=== PATIENT | male | born 1965 | race African-American/Black ===

== ENCOUNTER 2019-04-11 19:12 | Emergency (ER) | payer OTHER ==
[~2019-04-11] VITALS: Ht 177.8 cm; Wt 109.0 kg
--- NOTE | 2019-04-11 19:37 | NUR ---
PT RESTING IN BED, ERP AT BEDSIDE, PT STATES HE HAS BEEN WITHOUT O2X4 DAYS, NORMALLY ON 4L, HAS NOT TAKEN OTHER MEDS IN A WEEK. HX A-FIB, DIABETES, COPD
[2019-04-11 20:06] LABS: ANION GAP 6 mmol/L (5-15); CALCIUM 8.5 mg/dL (8.5-10.1); CHLORIDE 104 mmol/L (98-107); CREATININE 1.54 mg/dL (0.7-1.3)
[2019-04-11 20:27] LABS: BASOPHILS # (AUTO) 0.02 x10^3/uL (0-0.1); BASOPHILS % (AUTO) 1 % (0-1); EOSINOPHILS # (AUTO) 0.05 x10^3/uL (0-0.4); EOSINOPHILS % (AUTO) 1 % (1-7); LYMPHOCYTES # (AUTO) 0.89 x10^3/uL (1-3.4); LYMPHOCYTES % (AUTO) 20 % (22-44); MD MORPH REVIEW ONLY; MEAN CORPUSCULAR HEMOGLOBIN 27.4 pg (27.5-34.5); MEAN CORPUSCULAR HGB CONC 31.4 g/dL (33.2-36.2); MEAN CORPUSCULAR VOLUME 87.3 fL (81-97); MEAN PLATELET VOLUME 10.1 fL (7.4-10.4); MONOCYTES # (AUTO) 0.42 x10^3/uL (0.2-0.8); MONOCYTES % (AUTO) 9 % (2-9); NEUTROPHILS # (AUTO) 3.16 x10^3/uL (1.8-6.8); NEUTROPHILS % (AUTO) 70 % (42-75); PLATELET COUNT 218 x10^3/uL (130-400); RED BLOOD COUNT 5.28 x10^6/uL (4.38-5.82); RED CELL DISTRIBUTION WIDTH 17.1 % (9.4-14.8)
--- NOTE | 2019-04-11 20:28 | NUR ---
PT ON KNEES ON FLOOR LEANING OVER GURNEY. OFFERED ASSIST TO GET PT BACK IN GURNEY, PT STATED HE IS MORE COMFORTABLE IN THIS POSITION. PT SATING 97% ON 6L O2 PER N/C. WILL CONTINUE TO MONITOR. CALL LIGHT WITHIN REACH. PT IS ABLE TO REPOSITION SELF.
[2019-04-11 20:40] LABS: ANISOCYTOSIS 1+; HYPOCHROMIA 1+; LARGE PLATELETS 1+; POLYCHROMASIA 1+
[2019-04-11 20:41] LABS: <PLATELET ESTIMATE> ADEQUATE
[2019-04-11] MEDS ORDERED: FUROSEMIDE 40 MG/4 ML ONE (20:56)
[2019-04-11] MEDS ORDERED: SODIUM CHLORIDE FLUSH 10ML SYR IVF ONE (21:00)
[2019-04-11] MEDS ORDERED: FUROSEMIDE 40 MG/4 ML IV ONE (21:00)
[2019-04-11 21:08] VITALS: BP 170/116
--- NOTE | 2019-04-11 21:15 | NUR ---
IV REMOVED, PT ABLE TO AMBULATE TO DC DESK ON OWN. PT SPOUSE WITH HIM. PT AWARE HE MAY RETURN ANYTIME. PT SIGNED AMA FORM AFTER FORM WAS EXPLAINED TO PT.
[2019-04-11 21:30] LABS: TROPONIN I 0.034 ng/mL (0.000-0.045)
[2019-04-12] MEDS ORDERED: LASIX PO (00:24)
[2019-04-12] MEDS ORDERED: AMLO10TA8 PO (00:24)
[2019-04-12] MEDS ORDERED: LOSA100T14 PO (00:29)
[2019-04-12] MEDS ORDERED: RIVA20TA PO (00:29)
[2019-04-12] MEDS ORDERED: GABA-826 PO (00:29)
[2019-04-12] MEDS ORDERED: GLIP10TA13 PO (00:29)
[2019-04-12] MEDS ORDERED: ISOS30TA8 PO (00:29)
[2019-04-12] MEDS ORDERED: ATOR-2 PO (00:29)
[2019-04-12] MEDS ORDERED: METO200T47 PO (00:29)
[2019-04-12] MEDS ORDERED: MAGN400T22 PO (00:29)
[2019-04-12] MEDS ORDERED: FURO80TA77 PO (00:29)
[2019-04-12] MEDS ORDERED: BACL-19 PO (00:29)
== END 2019-04-11 21:16 | disposition left against medical advice (07) ==
LOC: ED 21:10
DX: I48.20 Chronic atrial fibrillation, unspecified (principal); J44.1 Chronic obstructive pulmonary disease with (acute) exacerbation; E11.22 Type 2 diabetes mellitus with diabetic chronic kidney disease; I13.0 Hypertensive heart and chronic kidney disease with heart failure and stage 1 through stage 4 chronic kidney disease, or unspecified chronic kidney disease; N18.9 Chronic kidney disease, unspecified; I50.22 Chronic systolic (congestive) heart failure; Z87.891 Personal history of nicotine dependence
CPT/HCPCS: 36415; 71045; 80048; 83880; 84484; 85025; 93005; 96374; 99284; J1940

== ENCOUNTER 2019-04-11 23:58 | Emergency (ER) | payer MEDICARE, OTHER ==
[~2019-04-11] VITALS: Ht 177.8 cm; Wt 109.0 kg
[2019-04-12 00:03] VITALS: BP 175/139
--- NOTE | 2019-04-12 00:19 | NUR ---
PT REFUSED EKG IN TRIAGE
--- NOTE | 2019-04-12 00:20 | NUR ---
THIS IS A 53Y M THAT COMES IN FOR SOB, PT STS HE HAS BEEN OUT OF HIS MEDS FOR A WEEK AND A HALF. PT STS A WEEK AGO HE WAS HOSPITALIZED FOR THE SAME THING IN [place], AND WAS ON OXYGEN BEFORE IT WAS STOLEN. PT CONNECTED TO ALL MONITORING, VSS, O2 SAT 94% ON 5L.
--- NOTE | 2019-04-12 00:21 | NUR ---
MD AT BEDSIDE TO ASSESS PT
[2019-04-12] MEDS ORDERED: AMLO10TA8 PO (00:24)
[2019-04-12] MEDS ORDERED: LASIX PO (00:24)
[2019-04-12] MEDS ORDERED: FURO80TA77 PO (00:29)
[2019-04-12] MEDS ORDERED: ISOS30TA8 PO (00:29)
[2019-04-12] MEDS ORDERED: GABA-826 PO (00:29)
[2019-04-12] MEDS ORDERED: METO200T47 PO (00:29)
[2019-04-12] MEDS ORDERED: BACL-19 PO (00:29)
[2019-04-12] MEDS ORDERED: LOSA100T14 PO (00:29)
[2019-04-12] MEDS ORDERED: ATOR-2 PO (00:29)
[2019-04-12] MEDS ORDERED: GLIP10TA13 PO (00:29)
[2019-04-12] MEDS ORDERED: MAGN400T22 PO (00:29)
[2019-04-12] MEDS ORDERED: RIVA20TA PO (00:29)
--- NOTE | 2019-04-12 00:45 | NUR ---
HOSPITALIST AT BEDSIDE TO ADMIT PT
[2019-04-12] MEDS ORDERED: GLUCAGON 1 MG IM PRN (01:00)
[2019-04-12] MEDS ORDERED: BACLOFEN 10 MG TABLET PO PRN (01:00)
[2019-04-12] MEDS ORDERED: ONDANSETRON 2MG/ML, 2ML IVPush PRN (01:00)
[2019-04-12] MEDS ORDERED: DEXTROSE 4 GM TAB.CHEW PO PRN (01:00)
[2019-04-12] MEDS ORDERED: ACETAMINOPHEN 325 MG TABLET PO PRN (01:00)
[2019-04-12] MEDS ORDERED: DEXTROSE 50%, 50ML SYRINGE IVPush PRN (01:00)
[2019-04-12] MEDS ORDERED: hydrALAzine 20 MG/ML, 1ML IVPush PRN (01:00)
[2019-04-12] MEDS ORDERED: ONDANSETRON ODT 4 MG PO PRN (01:00)
[2019-04-12] MEDS ORDERED: AMLODIPINE 5 MG TABLET PO SCH (01:00)
[2019-04-12] MEDS ORDERED: FUROSEMIDE 40 MG/4 ML IV SCH (01:00)
[2019-04-12] MEDS ORDERED: FUROSEMIDE 40 MG/4 ML ONE (01:10)
--- NOTE | 2019-04-12 01:15 | NUR ---
PT REFUSING MEDICATIONS, PT A/O X4 AND STS MAN I DON'T KNOW WHY WE HAVE TO KEEP DOING THIS
--- NOTE | 2019-04-12 01:20 | NUR ---
PT STS WANTS TO LEAVE HE HAS A BED ACROSS THE STREET AND IS UNHAPPY THAT HE WILL REMAIN IN THE ER UNTIL A BED BECOMES AVAILABLE MD RUST
[2019-04-12] MEDS ORDERED: APIXABAN 5 MG TABLET PO SCH (01:30)
--- NOTE | 2019-04-12 01:43 | NUR ---
HOSPITALIST AND ERP AT BEDSIDE TO EXPLAIN POTENTIAL RISK OF AMA. PT STS "I'M TIRED OF TALKING TO YOU PEOPLE WHY WOULD I STAY HERE WHEN I HAVE A WARM BED ACROSS THE STREET."
--- NOTE | 2019-04-12 01:45 | NUR ---
PT LEFT AMA WITH . IV DC PRIOR TO DEPARTURE FROM ER
[2019-04-12] MEDS ORDERED: INSULIN LISPRO 100 UNITS/ML, PEN SQ-INSULIN SCH (07:00)
[2019-04-12] MEDS ORDERED: TEMPLATE NON-FORMULARY MED. (Metoprolol Succinate** 200 MG) PO SCH (09:00)
[2019-04-12] MEDS ORDERED: ISOSORBIDE MONONITRATE ER 30 MG TABLET PO SCH (09:00)
[2019-04-12] MEDS ORDERED: GABAPENTIN 100 MG CAPSULE PO SCH (09:00)
[2019-04-12] MEDS ORDERED: BACLOFEN 10 MG TABLET PO SCH (09:00)
[2019-04-12] MEDS ORDERED: SODIUM CHLORIDE FLUSH 10ML SYR IVF SCH (09:00)
[2019-04-12] MEDS ORDERED: RIVAROXABAN 20 MG TABLET PO SCH (09:00)
[2019-04-12] MEDS ORDERED: ATORVASTATIN 80 MG TABLET PO SCH (21:00)
== END 2019-04-12 01:48 | disposition left against medical advice (07) ==
LOC: SUATTDRO 04-12 00:34 → ED 04-12 00:44
PROVIDERS: ATTEND Hospitalist
DX: I11.0 Hypertensive heart disease with heart failure (principal); I50.9 Heart failure, unspecified; J44.9 Chronic obstructive pulmonary disease, unspecified; R09.02 Hypoxemia; Z91.14 Patient's other noncompliance with medication regimen; R00.0 Tachycardia, unspecified; E11.9 Type 2 diabetes mellitus without complications; I48.91 Unspecified atrial fibrillation; Z90.49 Acquired absence of other specified parts of digestive tract; Z87.891 Personal history of nicotine dependence
CPT/HCPCS: 36415; 85379; 99283

== ENCOUNTER 2019-04-14 11:00 | Inpatient (IN) | payer MEDICARE, MEDICAID ==
[~2019-04-14] VITALS: Ht 177.8 cm; Wt 110.7 kg
[~2019-04-14 11:00] MED LIST: AMLO10TA8 PO; ATOR-2 PO; BACL-19 PO; FURO80TA77 PO; GABA-826 PO; GLIP10TA13 PO; ISOS30TA8 PO; LASIX PO; LOSA100T14 PO; MAGN400T22 PO; METO200T47 PO; RIVA20TA PO
--- NOTE | 2019-04-14 11:28 | NUR ---
pt to ed from [facility] w/ gf. here 2 days ago for same. non med compliant. comes in afib 120-140s w/ mult pvcs. bp as charted. denies cp but feels heart racing. 70s on RA on arrival bc non compliant w/ o2. 10 L oxymask to 96%. c/o sob. crackles L lung base. ROSE. no swelling in legs. pt reluctant to comply w/ rn directions/questiosn. sts feels better w/ o2. piv est 18 MANNY, labs drawn. ecg on arrival. dr chapa in room at moment. call sanchez in reach. as
[2019-04-14] MEDS ORDERED: ASPIRIN 81 MG TABLET CHEW ONE (11:38)
[2019-04-14] MEDS ORDERED: DILTIAZEM 5 MG/ML, 5ML ONE (11:39)
[2019-04-14] MEDS ORDERED: RIVAROXABAN 20 MG TABLET ONE (11:39)
--- NOTE | 2019-04-14 11:47 | NUR ---
dilt per mar. 6 pvcs noted. as
--- NOTE | 2019-04-14 11:56 | NUR ---
bp/hr improved see vitals. pt sts feels no difference. desat to 83 when takes o2 off. told to keep o2 on. pt told sahm he would stay for admit this time. call sanchez in reach ctm. as
[2019-04-14] MEDS ORDERED: ASPIRIN 81 MG TABLET CHEW PO ONE (12:00)
[2019-04-14] MEDS ORDERED: SODIUM CHLORIDE FLUSH 10ML SYR IVF ONE (12:00)
[2019-04-14] MEDS ORDERED: DILTIAZEM 5 MG/ML, 5ML IV ONE (12:00)
[2019-04-14] MEDS: RIVAROXABAN 20 MG TABLET PO SCH (12:00)
[2019-04-14 12:08] LABS: BASOPHILS # (AUTO) 0.02 x10^3/uL (0-0.1); BASOPHILS % (AUTO) 0 % (0-1); EOSINOPHILS % (AUTO) 2 % (1-7); LYMPHOCYTES # (AUTO) 0.66 x10^3/uL (1-3.4); LYMPHOCYTES % (AUTO) 10 % (22-44); MD NO; MEAN CORPUSCULAR HEMOGLOBIN 27.7 pg (27.5-34.5); MEAN CORPUSCULAR HGB CONC 31.6 g/dL (33.2-36.2); MEAN CORPUSCULAR VOLUME 87.4 fL (81-97); MEAN PLATELET VOLUME 9.6 fL (7.4-10.4); MONOCYTES # (AUTO) 0.44 x10^3/uL (0.2-0.8); MONOCYTES % (AUTO) 7 % (2-9); NEUTROPHILS # (AUTO) 5.19 x10^3/uL (1.8-6.8); NEUTROPHILS % (AUTO) 81 % (42-75); PLATELET COUNT 227 x10^3/uL (130-400); RED BLOOD COUNT 5.29 x10^6/uL (4.38-5.82); RED CELL DISTRIBUTION WIDTH 16.9 % (9.4-14.8)
[2019-04-14 12:14] LABS: ALBUMIN 2.9 g/dL (3.4-5.0); ANION GAP 9 mmol/L (5-15); CALCIUM 8.6 mg/dL (8.5-10.1); CHLORIDE 103 mmol/L (98-107)
[2019-04-14 12:21] LABS: ALANINE AMINOTRANSFERASE 16 U/L (12-78); ALKALINE PHOSPHATASE 119 U/L (45-117); BILIRUBIN,TOTAL 2.6 mg/dL (0.2-1.0); CREATININE 1.58 mg/dL (0.7-1.3); TOTAL PROTEIN 7.1 g/dL (6.4-8.2); TROPONIN I 0.032 ng/mL (0.000-0.045)
--- NOTE | 2019-04-14 12:21 | NUR ---
vs more stable. pt resting on stretcher. o2 titrated down to 8 lpm. wctm. as
--- NOTE | 2019-04-14 12:28 | NUR ---
PT VERBALIZING FRUSTRATION AT BEING HOOKED UP TO MONITOR. BP CUFF REPOSITIONED TO ATTEMPT ACCURATE BP PT KEEPS MOVING/LAYING ON CUFF. PT TAKING CUFF OFF. VERBALLY AGGRESSIVE WITH THIS RN. PT'S RUDE, WHEN ATTEMPTED TO EXPLAIN NECESSITY OF O2/MONITOR/BP CUFF, ROLLED HER EYES STS "I DON'T NEED TO HEAR THIS". PT THREATENING TO LEAVE. OXYMASK REPOSITIONED ON FACE. CALL GARCIA IN REACH. SEARCH STRATEGIST INFORMED. WILL NOTIFY MD. HR WAS 110-120S AFIB BUT ONCE PT STARTED SITTING UP AND MOVING WAS 140S AFTIB.
[2019-04-14] MEDS ORDERED: DILTIAZEM 125 MG in SODIUM CHLORIDE 0.9% 100 ML IV SCH ×2 (12:39→17:30)
--- NOTE | 2019-04-14 12:58 | NUR ---
dilt gtt req from pharm. pt appears to be sleeping. vs as noted. as
--- NOTE | 2019-04-14 13:13 | NUR ---
cardizem gtt started per may. vitals as charted .afib 110s-120s. awaiting admit. trop neg. pt and continue to be dismissive of staff. call sanchez in reach. as
--- NOTE | 2019-04-14 13:48 | NUR ---
vitals as noted. md made aware. cardizem to 15 mg/hr. pt denies pain/cp. trialing nc at 6 LPM. call sanchez in reach. as
--- NOTE | 2019-04-14 14:11 | NUR ---
PT WILL BE ICU EVAL. CONT TO TITRATE DILT.
[2019-04-14] MEDS ORDERED: hydrALAzine 20 MG/ML, 1ML ONE (14:23)
[2019-04-14] MEDS ORDERED: NITROGLYCERIN/D5W PMX 250 ML IV SCH (14:24)
--- NOTE | 2019-04-14 14:28 | NUR ---
NOTIFIED OF BP. PLAN FOR NITRO GTT.
--- NOTE | 2019-04-14 14:33 | NUR ---
emmanuel segovia from pharm. as
[2019-04-14] MEDS ORDERED: NITROGLYCERIN OINT 2%, 1GM TP ONE ×2 (14:51→15:00)
--- NOTE | 2019-04-14 14:59 | NUR ---
ORDER FOR NITROPASTE OBTAINED. PT REFUSING. STS GETS MEJIA. OFFERED TYLENOL. STILL REFUSING. WILL NOTIFY
[2019-04-14] MEDS ORDERED: METOPROLOL 1 MG/ML, 5ML ONE (15:38)
[2019-04-14] MEDS ORDERED: AMLODIPINE 5 MG TABLET ONE (15:38)
--- NOTE | 2019-04-14 15:43 | NUR ---
md made aware that pt refusig nitro past, refusing 2nd iv for nitro gtt. home meds ordered, metoprolol iv. ctm. denies cp/sob.as
[2019-04-14] MEDS ORDERED: METOPROLOL 1 MG/ML, 5ML IVPush ONE (16:00)
--- NOTE | 2019-04-14 16:46 | NUR ---
deftu at bedside for eval. daily bp meds per may. as
--- NOTE | 2019-04-14 17:00 | NUR ---
pt to be cardtele admit. as
[2019-04-14] MEDS ORDERED: POLYETHYLENE GLYCOL 17 GM PACKET PO PRN (17:30)
[2019-04-14] MEDS ORDERED: ONDANSETRON 2MG/ML, 2ML IVPush PRN (17:30)
[2019-04-14] MEDS ORDERED: PROMETHAZINE 25 MG/ML, 1ML IM PRN (17:30)
[2019-04-14] MEDS ORDERED: SODIUM CHLORIDE FLUSH 10ML SYR IVF PRN (17:30)
[2019-04-14] MEDS ORDERED: DEXTROSE 4 GM TAB.CHEW PO PRN (17:30)
[2019-04-14] MEDS ORDERED: BISACODYL 10 MG SUPP PR PRN (17:30)
[2019-04-14] MEDS ORDERED: DEXTROSE 50%, 50ML SYRINGE IVPush PRN (17:30)
[2019-04-14] MEDS ORDERED: DOCUSATE 100 MG CAPSULE PO PRN (17:30)
[2019-04-14] MEDS ORDERED: GLUCAGON 1 MG IM PRN (17:30)
[2019-04-14] MEDS ORDERED: ACETAMINOPHEN 325 MG TABLET PO PRN (17:30)
[2019-04-14] MEDS ORDERED: MAGNESIUM SULFATE PMX 2GM/50ML 50 ML IV ONE (18:00)
[2019-04-14] MEDS ORDERED: POTASSIUM CHLORIDE 20 MEQ TAB.ER.PRT PO ONE (18:00)
[2019-04-14 18:01] LABS: TROPONIN I 0.039 ng/mL (0.000-0.045)
[2019-04-14] MEDS ORDERED: POTASSIUM CHLORIDE 20 MEQ TAB.ER.PRT ONE ×3 (18:39→19:06)
[2019-04-14] MEDS ORDERED: MAGNESIUM SULFATE PMX 2GM/50ML 50 ML ONE (19:13)
--- NOTE | 2019-04-14 19:19 | NUR ---
SALESPERSON BOOKS: INTO ROOM TO DISCUSS CARE. POC DISCUSSED. PT NOW AGREEABLE TO SECOND IV DUE TO NEEDING MUTLIPLE IV DRIPS. PT GIVEN NEW KDUR PER REQUEST. PT AWARE HE WILL BE A CARDS HOLD IN THE ED AT THIS TIME. PT AND SPOUSE DENY FURTHER NEEDS AT THIS TIME. CALL LIGHT ON LAP.
--- NOTE | 2019-04-14 19:32 | NUR ---
ATTEMPT TO MEDICATE PT. MAG AND DILTZ INCOMPATIBLE. EXPLAINED TO PT. PT VERY RESISTANT TO SECOND IV. WHEN EXPLAINED, DEMANDS TO SPEAK W/ SOMEONE ELSE. PT VERBALLY AGGRESSIVE. NOTIFIED EEO OFFICER. REPORT TO DEE RN, JOSESITO RN. HOSPITAL BED/DINNER TRAY ORDERED.
[2019-04-14] MEDS: SODIUM CHLORIDE FLUSH 10ML SYR IVF SCH (21:00)
[2019-04-14] MEDS: ATORVASTATIN 40 MG TABLET PO SCH (22:27)
[2019-04-14] MEDS: BACLOFEN 10 MG TABLET PO SCH (22:27)
[2019-04-14] MEDS: INSULIN LISPRO 100 UNITS/ML, PEN SQ-INSULIN SCH (22:48)
--- NOTE | 2019-04-14 23:20 | NUR ---
Patient transferred to medical bed with no complaints. Medications administered per may.
[2019-04-14 23:34] LABS: TROPONIN I 0.036 ng/mL (0.000-0.045)
--- NOTE | 2019-04-14 23:35 | NUR ---
Per MD Cornelius, hospitalist, run Diltiazem at 5mL/hr.
--- NOTE | 2019-04-15 01:55 | NUR ---
Patient resting in bed with no complaints.
--- NOTE | 2019-04-15 02:51 | NUR ---
Patient sleeping in bed with no complaints. Respirations even and unlabored.
[2019-04-15 04:44] LABS: ALANINE AMINOTRANSFERASE 16 U/L (12-78); ALBUMIN 2.6 g/dL (3.4-5.0); ANION GAP 6 mmol/L (5-15); CALCIUM 8.3 mg/dL (8.5-10.1); CHLORIDE 109 mmol/L (98-107)
[2019-04-15 04:47] LABS: BASOPHILS # (AUTO) 0.03 x10^3/uL (0-0.1); BASOPHILS % (AUTO) 1 % (0-1); EOSINOPHILS # (AUTO) 0.18 x10^3/uL (0-0.4); EOSINOPHILS % (AUTO) 3 % (1-7); LYMPHOCYTES # (AUTO) 0.67 x10^3/uL (1-3.4); LYMPHOCYTES % (AUTO) 9 % (22-44); MD NO; MEAN CORPUSCULAR HEMOGLOBIN 27.3 pg (27.5-34.5); MEAN CORPUSCULAR HGB CONC 31.1 g/dL (33.2-36.2); MEAN CORPUSCULAR VOLUME 87.8 fL (81-97); MEAN PLATELET VOLUME 9.6 fL (7.4-10.4); MONOCYTES # (AUTO) 0.47 x10^3/uL (0.2-0.8); MONOCYTES % (AUTO) 6 % (2-9); NEUTROPHILS # (AUTO) 6.07 x10^3/uL (1.8-6.8); NEUTROPHILS % (AUTO) 82 % (42-75); PLATELET COUNT 185 x10^3/uL (130-400); RED BLOOD COUNT 4.85 x10^6/uL (4.38-5.82)
[2019-04-15 04:48] LABS: ALKALINE PHOSPHATASE 109 U/L (45-117); BILIRUBIN,TOTAL 1.9 mg/dL (0.2-1.0); CHOL/HDL RATIO 4.3; CHOLESTEROL, TOTAL 126 mg/dL (140-239); CREATININE 1.45 mg/dL (0.7-1.3); HDL CHOL % 23 % (26-37); HDL CHOLESTEROL (DIRECT) 29 mg/dL (40-60); LDL CHOLESTEROL,CALCULATED 77 mg/dL (54-169); LDL/HDL RATIO 2.7 (0.5-3.0); TOTAL PROTEIN 6.5 g/dL (6.4-8.2); TRIGLYCERIDES 100 mg/dL (50-200); VLDL CHOLESTEROL 20 mg/dL (0-25)
[2019-04-15] MEDS ORDERED: FUROSEMIDE 20 MG/2 ML ONE (06:39)
[2019-04-15] MEDS: FUROSEMIDE 20 MG/2 ML IV SCH ×2 (06:41→17:28)
--- NOTE | 2019-04-15 07:56 | NUR ---
cardiac rhythm strip printed and put on chart
[2019-04-15] MEDS: INSULIN LISPRO 100 UNITS/ML, PEN SQ-INSULIN SCH ×4 (08:45→20:09)
[2019-04-15] MEDS ORDERED: AMLODIPINE 10 MG TAB PO SCH (09:00)
[2019-04-15] MEDS ORDERED: ISOSORBIDE MONONITRATE ER 30 MG TABLET PO SCH (09:00)
[2019-04-15] MEDS ORDERED: LOSARTAN 100 MG TAB PO SCH (09:00)
[2019-04-15] MEDS: SODIUM CHLORIDE FLUSH 10ML SYR IVF SCH ×2 (09:00→20:08)
[2019-04-15] MEDS ORDERED: RIVAROXABAN 20 MG TABLET ONE (09:19)
[2019-04-15] MEDS ORDERED: MAGNESIUM OXIDE 400 MG TABLET ONE (09:19)
[2019-04-15] MEDS ORDERED: AMLODIPINE 5 MG TABLET ONE (09:19)
[2019-04-15] MEDS: RIVAROXABAN 20 MG TABLET PO SCH (09:32)
[2019-04-15] MEDS: MAGNESIUM OXIDE 400 MG TABLET PO SCH (09:32)
[2019-04-15] MEDS: AMLODIPINE 10 MG TAB PO SCH (09:32)
[2019-04-15] MEDS: BACLOFEN 10 MG TABLET PO SCH ×2 (10:11→20:08)
[2019-04-15] MEDS: GABAPENTIN 100 MG CAPSULE PO SCH (10:11)
[2019-04-15] MEDS: LOSARTAN 100 MG TAB PO SCH (10:11)
[2019-04-15] MEDS: ISOSORBIDE MONONITRATE ER 30 MG TABLET PO SCH (10:11)
[2019-04-15] MEDS: METOPROLOL SUCCINATE 100 MG TAB.ER.24H PO SCH ×2 (10:11→20:08)
[2019-04-15] MEDS ORDERED: hydrALAzine 20 MG/ML, 1ML IV PRN (14:00)
--- NOTE | 2019-04-15 14:13 | NUR ---
RECEIVED REPORT FROM PEE ARRIAGA. CARE ASSUMED AT THIS TIME. PT SITTING UP IN BED ON KNEES "JUST STRETCHING AND CHANGING POSITION." PT LAYING BACK DOWN ON HOSPITAL BED IN POSITION OF COMFORT. DENIES ANY PAIN AND NEED TO USE RESTROOM. VSS. RATE CONTROLLED ON MONITOR, 70-80. ALL NEEDS MET AND ADDRESSED. FALL PRECAUTIONS IN PLACE. SIDE RAILS UPX2. A&OX4. CAREGIVER AT BEDSIDE. PT WAS CARD TELE HOLD, LEVEL OF CARE CHANGED TO MED TELE BY DR. DAVIS, ADMITTING PROVIDER. AWAITING ROOM ASSIGNMENT ON FLOOR.
--- NOTE | 2019-04-15 15:22 | NUR ---
PHONE/VERBAL REPORT TO MICHELLE ARRIAGA FOR ROOM 489. PT READY FOR TRANSPORT TO FLOOR.
[2019-04-15 16:21] VITALS: BP 127/88
[2019-04-15 20:00] VITALS: BP 143/96
[2019-04-15] MEDS: ATORVASTATIN 40 MG TABLET PO SCH (20:08)
[2019-04-16 03:24] VITALS: BP 152/111
[2019-04-16 04:11] VITALS: BP 151/104
[2019-04-16 06:26] VITALS: BP 158/106
[2019-04-16] MEDS: INSULIN LISPRO 100 UNITS/ML, PEN SQ-INSULIN SCH ×4 (07:58→20:23)
[2019-04-16] MEDS: RIVAROXABAN 20 MG TABLET PO SCH (07:59)
[2019-04-16] MEDS: FUROSEMIDE 20 MG/2 ML IV SCH ×2 (07:59→17:25)
[2019-04-16] MEDS: METOPROLOL SUCCINATE 100 MG TAB.ER.24H PO SCH ×2 (07:59→20:22)
[2019-04-16] MEDS: ISOSORBIDE MONONITRATE ER 30 MG TABLET PO SCH (07:59)
[2019-04-16] MEDS: AMLODIPINE 10 MG TAB PO SCH (08:00)
[2019-04-16] MEDS: MAGNESIUM OXIDE 400 MG TABLET PO SCH (08:00)
[2019-04-16] MEDS: BACLOFEN 10 MG TABLET PO SCH ×2 (08:00→20:22)
[2019-04-16] MEDS: GABAPENTIN 100 MG CAPSULE PO SCH (08:00)
[2019-04-16] MEDS: SODIUM CHLORIDE FLUSH 10ML SYR IVF SCH ×2 (08:00→20:23)
[2019-04-16] MEDS: LOSARTAN 100 MG TAB PO SCH (08:01)
[2019-04-16 10:20] LABS: ALBUMIN 2.5 g/dL (3.4-5.0); ANION GAP 7 mmol/L (5-15); CALCIUM 8.4 mg/dL (8.5-10.1); CHLORIDE 105 mmol/L (98-107)
[2019-04-16 10:26] LABS: ALANINE AMINOTRANSFERASE 15 U/L (12-78); ALKALINE PHOSPHATASE 109 U/L (45-117); BILIRUBIN,TOTAL 1.8 mg/dL (0.2-1.0); CREATININE 1.66 mg/dL (0.7-1.3); TOTAL PROTEIN 6.5 g/dL (6.4-8.2)
[2019-04-16] MEDS: methylPREDNISolone SOD SUCC 125 MG/2 ML IVPush SCH ×3 (11:05→22:42)
[2019-04-16 11:34] LABS: BASOPHILS % (AUTO) 0 % (0-1); EOSINOPHILS # (AUTO) 0.23 x10^3/uL (0-0.4); EOSINOPHILS % (AUTO) 4 % (1-7); LYMPHOCYTES # (AUTO) 0.62 x10^3/uL (1-3.4); LYMPHOCYTES % (AUTO) 11 % (22-44); MD SCAN; MEAN CORPUSCULAR HEMOGLOBIN 27.5 pg (27.5-34.5); MEAN CORPUSCULAR HGB CONC 31.4 g/dL (33.2-36.2); MEAN CORPUSCULAR VOLUME 87.6 fL (81-97); MEAN PLATELET VOLUME 9.2 fL (7.4-10.4); MONOCYTES # (AUTO) 0.48 x10^3/uL (0.2-0.8); MONOCYTES % (AUTO) 9 % (2-9); NEUTROPHILS # (AUTO) 4.17 x10^3/uL (1.8-6.8); NEUTROPHILS % (AUTO) 76 % (42-75); PLATELET COUNT 230 x10^3/uL (130-400); RED CELL DISTRIBUTION WIDTH 16.5 % (9.4-14.8)
[2019-04-16 12:56] VITALS: BP 149/101
[2019-04-16] MEDS ORDERED: MAGNESIUM SULFATE PMX 2GM/50ML 50 ML IV ONE (17:00)
[2019-04-16] MEDS: POTASSIUM CHLORIDE 20 MEQ TAB.ER.PRT PO SCH (17:25)
[2019-04-16 19:57] VITALS: BP 144/96
[2019-04-16] MEDS: ATORVASTATIN 40 MG TABLET PO SCH (20:22)
[2019-04-17 01:28] VITALS: BP 167/89
[2019-04-17] MEDS: methylPREDNISolone SOD SUCC 125 MG/2 ML IVPush SCH (05:08)
[2019-04-17 05:59] LABS: ALANINE AMINOTRANSFERASE 21 U/L (12-78); ALBUMIN 2.9 g/dL (3.4-5.0); ANION GAP 7 mmol/L (5-15); CALCIUM 8.6 mg/dL (8.5-10.1); CHLORIDE 101 mmol/L (98-107); CREATININE 1.75 mg/dL (0.7-1.3)
[2019-04-17 06:01] LABS: ALKALINE PHOSPHATASE 145 U/L (45-117); TOTAL PROTEIN 7.6 g/dL (6.4-8.2)
[2019-04-17 06:43] LABS: MEAN CORPUSCULAR HEMOGLOBIN 27.6 pg (27.5-34.5); MEAN CORPUSCULAR VOLUME 88.8 fL (81-97); PLATELET COUNT 227 x10^3/uL (130-400); RED BLOOD COUNT 5.13 x10^6/uL (4.38-5.82); RED CELL DISTRIBUTION WIDTH 17.1 % (9.4-14.8)
[2019-04-17 06:44] LABS: BASOPHILS % (AUTO) 0 % (0-1); EOSINOPHILS % (AUTO) 0 % (1-7); LYMPHOCYTES # (AUTO) 0.33 x10^3/uL (1-3.4); LYMPHOCYTES % (AUTO) 5 % (22-44); MD SCAN; MONOCYTES # (AUTO) 0.02 x10^3/uL (0.2-0.8); MONOCYTES % (AUTO) 0 % (2-9); NEUTROPHILS # (AUTO) 6.71 x10^3/uL (1.8-6.8); NEUTROPHILS % (AUTO) 95 % (42-75)
[2019-04-17] MEDS: INSULIN LISPRO 100 UNITS/ML, PEN SQ-INSULIN SCH ×2 (07:00→11:49)
[2019-04-17 07:23] VITALS: BP 171/114
[2019-04-17] MEDS ORDERED: DOXYCYCLINE 100 MG in DEXTROSE 5% 250 ML IV SCH (08:30)
[2019-04-17] MEDS: SODIUM CHLORIDE FLUSH 10ML SYR IVF SCH (09:00)
[2019-04-17] MEDS ORDERED: RIVAROXABAN 15 MG TABLET PO SCH (09:00)
[2019-04-17] MEDS: LOSARTAN 100 MG TAB PO SCH (09:00)
[2019-04-17 09:03] VITALS: BP 169/140
[2019-04-17] MEDS: ISOSORBIDE MONONITRATE ER 30 MG TABLET PO SCH (09:04)
[2019-04-17] MEDS: GABAPENTIN 100 MG CAPSULE PO SCH (09:04)
[2019-04-17] MEDS: BACLOFEN 10 MG TABLET PO SCH (09:05)
[2019-04-17] MEDS: MAGNESIUM OXIDE 400 MG TABLET PO SCH (09:05)
[2019-04-17] MEDS: AMLODIPINE 10 MG TAB PO SCH (09:05)
[2019-04-17] MEDS: METOPROLOL SUCCINATE 100 MG TAB.ER.24H PO SCH (09:05)
[2019-04-17] MEDS: POTASSIUM CHLORIDE 20 MEQ TAB.ER.PRT PO SCH (09:05)
[2019-04-17] MEDS: FUROSEMIDE 20 MG/2 ML IV SCH (09:05)
[2019-04-17] MEDS ORDERED: INSULIN LISPRO 100 UNITS/ML, PEN SQ-INSULIN ONE ×2 (09:30→09:40)
[2019-04-17] MEDS ORDERED: INSULIN GLARGINE 100 UNITS/ML, PEN SQ-INSULIN ONE (11:30)
[2019-04-17] MEDS ORDERED: methylPREDNISolone SOD SUCC 125 MG/2 ML IVPush SCH (13:00)
[2019-04-17 14:01] VITALS: BP 176/128
[2019-04-17] MEDS ORDERED: INSULIN GLARGINE 100 UNITS/ML, PEN SQ-INSULIN SCH (21:00)
== END 2019-04-17 15:10 | disposition left against medical advice (07) | DRG 291 ==
LOC: ED 13:13 → SUATTDRO 16:33 → EDIP 17:19 → 4EST 04-15 14:53 → EDIP 04-15 14:54 → 4EST 04-15 15:44
PROVIDERS: ADMIT Internal Medicine; ATTEND Internal Medicine
DX: I13.0 Hypertensive heart and chronic kidney disease with heart failure and stage 1 through stage 4 chronic kidney disease, or unspecified chronic kidney disease (principal); N17.0 Acute kidney failure with tubular necrosis; I50.23 Acute on chronic systolic (congestive) heart failure; I16.1 Hypertensive emergency; J96.11 Chronic respiratory failure with hypoxia; D68.69 Other thrombophilia; I48.20 Chronic atrial fibrillation, unspecified; E83.42 Hypomagnesemia; J20.9 Acute bronchitis, unspecified; E11.22 Type 2 diabetes mellitus with diabetic chronic kidney disease; E11.65 Type 2 diabetes mellitus with hyperglycemia; E87.6 Hypokalemia; E88.09 Other disorders of plasma-protein metabolism, not elsewhere classified; J43.9 Emphysema, unspecified; N18.9 Chronic kidney disease, unspecified; Z59.0 Homelessness; Z79.01 Long term (current) use of anticoagulants; Z82.49 Family history of ischemic heart disease and other diseases of the circulatory system; Z83.3 Family history of diabetes mellitus; Z87.891 Personal history of nicotine dependence; Z91.19 Patient's noncompliance with other medical treatment and regimen; Z95.0 Presence of cardiac pacemaker; Z99.81 Dependence on supplemental oxygen; Z53.29 Procedure and treatment not carried out because of patient's decision for other reasons; E11.21 Type 2 diabetes mellitus with diabetic nephropathy
CPT/HCPCS: 36415; 36600; 71045; 74181; 76700; 80053; 80061; 82803; 82962; 83735; 83880; 84100; 84443; 84484; 85025; 93005; 93306; 96374; 96375; G0378; J7060; J0360; J1815; J1940; J2930; J3475

== ENCOUNTER 2019-04-19 09:13 | Inpatient (IN) | payer MEDICARE, MEDICAID ==
[~2019-04-19] VITALS: Ht 177.8 cm; Wt 104.6 kg
[2019-04-19] MEDS ORDERED: DILTIAZEM 125 MG in SODIUM CHLORIDE 0.9% 100 ML IV SCH (09:34)
--- NOTE | 2019-04-19 09:51 | NUR ---
PT HAS CO SOB FOR 2 WEEKS, WORSENING PAST COUPLE DAYS. PT RECENTLY LEFT AMA, STATES HE WAS UNABLE TO GET HIS MEDICATIONS REFILLED. HIS MEDS WERE ALSO STOLEN W HOME 02. THEREFORE, HE HAS NOT BEEN TAKING MEDICATIONS FOR 2 WEEKS OR USING OXYGEN. PT IS UNALBE TO WALK W OUT BECMOING SOB. MED STUDENT AT BEDSIDE. PTS ARE VISITING FROM [place]. PT REPIRATIONS LABORED AND TACHIPNIC, OXY MASK IN PLACE AT 8 L . FACING GRINDER APPLIED, IV ESTABLISHED.
[2019-04-19] MEDS ORDERED: DILTIAZEM 5 MG/ML, 5ML IV ONE (10:00)
[2019-04-19] MEDS ORDERED: SODIUM CHLORIDE FLUSH 10ML SYR IVF ONE (10:00)
[2019-04-19] MEDS ORDERED: DILTIAZEM 5 MG/ML, 5ML ONE (10:07)
--- NOTE | 2019-04-19 10:17 | NUR ---
DILT GTT STARTED 10ML/HR, DILT IVP TO MG. LABS AT BEDSIDE. PATIENT DEMANDING NASAL CANNULA.
[2019-04-19 10:51] LABS: INTERNATIONAL NORMALIZED RATIO 1.2 (0.93-1.1); PROTHROMBIN TIME 12.7 Seconds (9.6-11.5)
[2019-04-19 10:57] LABS: ALANINE AMINOTRANSFERASE 32 U/L (12-78); ANION GAP 6 mmol/L (5-15); CALCIUM 8.9 mg/dL (8.5-10.1); CHLORIDE 109 mmol/L (98-107); CREATININE 1.67 mg/dL (0.7-1.3); T4 (THYROXINE) 9.2 mcg/dL (4.5-12.1)
[2019-04-19 11:02] LABS: ALKALINE PHOSPHATASE 117 U/L (45-117); BILIRUBIN,TOTAL 1.3 mg/dL (0.2-1.0); TOTAL PROTEIN 7.3 g/dL (6.4-8.2); TROPONIN I 0.023 ng/mL (0.000-0.045)
--- NOTE | 2019-04-19 11:06 | NUR ---
PT WAS REFUSING LABS BECAUSE "IT HURT" RN EXPLAINED TO PT THAT LABS WERE NEEDED TO CONTINUE W PLAN OF CARE. PT BECOMING VERBALLY AGRESSIVE AND WANTING TO AMA. RN EXPLAINED THAT IT WOULD BE DANGEROUS IF PT LEFT BECAUSE OF CURRENT HEALTH STATUS OF OXYGEN REQUIREMENTS AND AFIB. MADE AWARE. PT NOW CHANGED MIND AND ALLOWING LAB TO DRAW AND WILL BE STAYING.
[2019-04-19] MEDS ORDERED: SODIUM CHLORIDE FLUSH 10ML SYR IVF PRN (12:00)
[2019-04-19 12:01] LABS: MEAN CORPUSCULAR HEMOGLOBIN 27.2 pg (27.5-34.5); MEAN CORPUSCULAR HGB CONC 30.9 g/dL (33.2-36.2); MEAN CORPUSCULAR VOLUME 87.9 fL (81-97); MEAN PLATELET VOLUME 10.3 fL (7.4-10.4); PLATELET COUNT 202 x10^3/uL (130-400); RED BLOOD COUNT 5.32 x10^6/uL (4.38-5.82); RED CELL DISTRIBUTION WIDTH 17.9 % (9.4-14.8)
--- NOTE | 2019-04-19 12:22 | NUR ---
PT AMBULATED W STEADY GATE TO BATHROOM W 02. ASSISTED
[2019-04-19 12:27] LABS: BASOPHILS % (AUTO) 0 % (0-1); EOSINOPHILS # (AUTO) 0.02 x10^3/uL (0-0.4); EOSINOPHILS % (AUTO) 0 % (1-7); LYMPHOCYTES # (AUTO) 0.94 x10^3/uL (1-3.4); LYMPHOCYTES % (AUTO) 13 % (22-44); MD SCAN; MONOCYTES # (AUTO) 0.63 x10^3/uL (0.2-0.8); MONOCYTES % (AUTO) 9 % (2-9); NEUTROPHILS # (AUTO) 5.54 x10^3/uL (1.8-6.8); NEUTROPHILS % (AUTO) 78 % (42-75)
--- NOTE | 2019-04-19 13:55 | NUR ---
REPORT TO SHARATH
[2019-04-19 15:26] VITALS: BP 163/118
[2019-04-19] MEDS: LOSARTAN 100 MG TAB PO SCH (16:30)
[2019-04-19] MEDS: METOPROLOL SUCCINATE 100 MG TAB.ER.24H PO SCH (16:33)
[2019-04-19] MEDS: ISOSORBIDE MONONITRATE ER 30 MG TABLET PO SCH (16:33)
[2019-04-19] MEDS: DILTIAZEM 120 MG CAP.ER.24H PO SCH (16:54)
[2019-04-19] MEDS: RIVAROXABAN 20 MG TABLET PO SCH (16:54)
[2019-04-19] MEDS: FUROSEMIDE 40 MG/4 ML IV SCH (16:55)
[2019-04-19] MEDS ORDERED: RIVAROXABAN 15 MG TABLET PO SCH (17:00)
[2019-04-19] MEDS ORDERED: POTASSIUM CHLORIDE 20 MEQ TAB.ER.PRT PO ONE (17:00)
[2019-04-19] MEDS: INSULIN LISPRO 100 UNITS/ML, PEN SQ-INSULIN SCH ×2 (17:32→20:25)
[2019-04-19 19:25] VITALS: BP 139/86
[2019-04-19] MEDS: ATORVASTATIN 40 MG TABLET PO SCH (20:17)
[2019-04-19] MEDS: BACLOFEN 10 MG TABLET PO SCH (20:17)
[2019-04-20 01:15] VITALS: BP 152/99
[2019-04-20 06:36] LABS: CALCIUM 8.4 mg/dL (8.5-10.1)
[2019-04-20] MEDS: INSULIN LISPRO 100 UNITS/ML, PEN SQ-INSULIN SCH ×4 (07:00→22:19)
[2019-04-20 07:04] LABS: ANION GAP 7 mmol/L (5-15); CHLORIDE 109 mmol/L (98-107)
[2019-04-20 08:15] LABS: MEAN CORPUSCULAR HEMOGLOBIN 27.4 pg (27.5-34.5); MEAN CORPUSCULAR HGB CONC 31.1 g/dL (33.2-36.2); MEAN CORPUSCULAR VOLUME 87.9 fL (81-97); MEAN PLATELET VOLUME 8.5 fL (7.4-10.4); PLATELET COUNT 193 x10^3/uL (130-400); RED BLOOD COUNT 4.86 x10^6/uL (4.38-5.82); RED CELL DISTRIBUTION WIDTH 16.6 % (9.4-14.8)
[2019-04-20] MEDS: ISOSORBIDE MONONITRATE ER 30 MG TABLET PO SCH (08:45)
[2019-04-20] MEDS: METOPROLOL SUCCINATE 100 MG TAB.ER.24H PO SCH (08:45)
[2019-04-20] MEDS: MAGNESIUM OXIDE 400 MG TABLET PO SCH (08:45)
[2019-04-20] MEDS: DILTIAZEM 120 MG CAP.ER.24H PO SCH (08:46)
[2019-04-20] MEDS: FUROSEMIDE 40 MG/4 ML IV SCH ×2 (08:46→16:41)
[2019-04-20] MEDS: BACLOFEN 10 MG TABLET PO SCH ×2 (08:46→22:19)
[2019-04-20] MEDS: LOSARTAN 100 MG TAB PO SCH (08:46)
[2019-04-20 08:49] VITALS: BP 163/109
[2019-04-20 08:59] LABS: BASOPHILS # (AUTO) 0.02 x10^3/uL (0-0.1); BASOPHILS % (AUTO) 0 % (0-1); EOSINOPHILS # (AUTO) 0.15 x10^3/uL (0-0.4); EOSINOPHILS % (AUTO) 3 % (1-7); LYMPHOCYTES # (AUTO) 0.79 x10^3/uL (1-3.4); LYMPHOCYTES % (AUTO) 13 % (22-44); MD SCAN; MONOCYTES # (AUTO) 0.36 x10^3/uL (0.2-0.8); MONOCYTES % (AUTO) 6 % (2-9); NEUTROPHILS # (AUTO) 4.67 x10^3/uL (1.8-6.8); NEUTROPHILS % (AUTO) 78 % (42-75)
[2019-04-20] MEDS ORDERED: ISOSORBIDE MONONITRATE ER 30 MG TABLET PO SCH (09:00)
[2019-04-20] MEDS ORDERED: RIVAROXABAN 15 MG TABLET PO SCH (09:00)
[2019-04-20] MEDS ORDERED: LOSARTAN 100 MG TAB PO SCH (09:00)
[2019-04-20] MEDS ORDERED: METOPROLOL SUCCINATE 100 MG TAB.ER.24H PO SCH (09:00)
[2019-04-20] MEDS ORDERED: AMLODIPINE 10 MG TAB PO SCH (09:00)
[2019-04-20] MEDS ORDERED: DILTIAZEM 120 MG CAP.ER.24H PO SCH (09:00)
[2019-04-20 14:14] VITALS: BP 158/92
[2019-04-20] MEDS: RIVAROXABAN 20 MG TABLET PO SCH (16:41)
[2019-04-20 21:18] VITALS: BP 152/107
[2019-04-20] MEDS: ATORVASTATIN 40 MG TABLET PO SCH (22:18)
[2019-04-21 01:21] VITALS: BP 145/82
[2019-04-21 04:38] LABS: MEAN CORPUSCULAR HEMOGLOBIN 27.3 pg (27.5-34.5); MEAN CORPUSCULAR VOLUME 88.3 fL (81-97); MEAN PLATELET VOLUME 9.9 fL (7.4-10.4); PLATELET COUNT 176 x10^3/uL (130-400); RED BLOOD COUNT 4.97 x10^6/uL (4.38-5.82); RED CELL DISTRIBUTION WIDTH 16.9 % (9.4-14.8)
[2019-04-21 04:46] LABS: ANION GAP 3 mmol/L (5-15); CALCIUM 8.3 mg/dL (8.5-10.1); CHLORIDE 103 mmol/L (98-107); CREATININE 1.42 mg/dL (0.7-1.3)
[2019-04-21 04:52] LABS: BASOPHILS # (AUTO) 0.01 x10^3/uL (0-0.1); BASOPHILS % (AUTO) 0 % (0-1); EOSINOPHILS # (AUTO) 0.26 x10^3/uL (0-0.4); EOSINOPHILS % (AUTO) 5 % (1-7); LYMPHOCYTES % (AUTO) 12 % (22-44); MD SCAN; MONOCYTES # (AUTO) 0.38 x10^3/uL (0.2-0.8); MONOCYTES % (AUTO) 7 % (2-9); NEUTROPHILS # (AUTO) 4.39 x10^3/uL (1.8-6.8); NEUTROPHILS % (AUTO) 76 % (42-75)
[2019-04-21] MEDS: INSULIN LISPRO 100 UNITS/ML, PEN SQ-INSULIN SCH ×4 (08:54→21:00)
[2019-04-21] MEDS: LOSARTAN 100 MG TAB PO SCH (08:54)
[2019-04-21] MEDS: MAGNESIUM OXIDE 400 MG TABLET PO SCH (08:55)
[2019-04-21] MEDS: BACLOFEN 10 MG TABLET PO SCH ×2 (08:55→20:56)
[2019-04-21] MEDS: ISOSORBIDE MONONITRATE ER 30 MG TABLET PO SCH (08:56)
[2019-04-21] MEDS: FUROSEMIDE 40 MG/4 ML IV SCH ×2 (08:56→17:03)
[2019-04-21] MEDS: DILTIAZEM 120 MG CAP.ER.24H PO SCH (08:56)
[2019-04-21] MEDS: METOPROLOL SUCCINATE 100 MG TAB.ER.24H PO SCH (08:56)
[2019-04-21 09:06] VITALS: BP 168/111
[2019-04-21 14:09] VITALS: BP 150/99
[2019-04-21] MEDS: RIVAROXABAN 20 MG TABLET PO SCH (17:03)
[2019-04-21 20:47] VITALS: BP 115/74
[2019-04-21] MEDS: ATORVASTATIN 40 MG TABLET PO SCH (20:56)
[2019-04-22 04:03] VITALS: BP 163/96
[2019-04-22 05:00] LABS: ANION GAP 3 mmol/L (5-15); CALCIUM 8.4 mg/dL (8.5-10.1); CHLORIDE 103 mmol/L (98-107)
[2019-04-22 05:01] LABS: CREATININE 1.34 mg/dL (0.7-1.3)
[2019-04-22 08:14] VITALS: BP 132/81
[2019-04-22] MEDS: BACLOFEN 10 MG TABLET PO SCH ×2 (09:16→21:01)
[2019-04-22] MEDS: ISOSORBIDE MONONITRATE ER 30 MG TABLET PO SCH (09:16)
[2019-04-22] MEDS: MAGNESIUM OXIDE 400 MG TABLET PO SCH (09:16)
[2019-04-22] MEDS: LOSARTAN 100 MG TAB PO SCH (09:16)
[2019-04-22] MEDS: FUROSEMIDE 40 MG/4 ML IV SCH ×2 (09:16→17:16)
[2019-04-22] MEDS: METOPROLOL SUCCINATE 100 MG TAB.ER.24H PO SCH (09:17)
[2019-04-22] MEDS: DILTIAZEM 120 MG CAP.ER.24H PO SCH (09:17)
[2019-04-22] MEDS: INSULIN LISPRO 100 UNITS/ML, PEN SQ-INSULIN SCH ×4 (09:21→21:02)
[2019-04-22 15:08] VITALS: BP 145/87
[2019-04-22] MEDS: RIVAROXABAN 20 MG TABLET PO SCH (17:16)
[2019-04-22 20:21] VITALS: BP 156/104
[2019-04-22] MEDS: ATORVASTATIN 40 MG TABLET PO SCH (21:01)
[2019-04-23] MEDS: INSULIN LISPRO 100 UNITS/ML, PEN SQ-INSULIN SCH ×4 (08:15→21:00)
[2019-04-23] MEDS: LOSARTAN 100 MG TAB PO SCH (08:16)
[2019-04-23] MEDS: BACLOFEN 10 MG TABLET PO SCH ×2 (08:16→20:29)
[2019-04-23] MEDS: METOPROLOL SUCCINATE 100 MG TAB.ER.24H PO SCH (08:16)
[2019-04-23] MEDS: FUROSEMIDE 40 MG/4 ML IV SCH (08:16)
[2019-04-23] MEDS: ISOSORBIDE MONONITRATE ER 30 MG TABLET PO SCH (08:16)
[2019-04-23] MEDS: DILTIAZEM 120 MG CAP.ER.24H PO SCH (08:16)
[2019-04-23] MEDS: MAGNESIUM OXIDE 400 MG TABLET PO SCH (08:17)
[2019-04-23 09:32] LABS: ANION GAP 3 mmol/L (5-15); CALCIUM 8.4 mg/dL (8.5-10.1); CHLORIDE 101 mmol/L (98-107); CREATININE 1.59 mg/dL (0.7-1.3)
[2019-04-23 13:46] VITALS: BP 142/82
[2019-04-23] MEDS: RIVAROXABAN 20 MG TABLET PO SCH (17:25)
[2019-04-23 19:50] VITALS: BP 148/107
[2019-04-23] MEDS: ATORVASTATIN 40 MG TABLET PO SCH (20:29)
[2019-04-24 01:15] VITALS: BP 184/130
[2019-04-24] MEDS: hydrALAzine 20 MG/ML, 1ML IV PRN (01:37)
[2019-04-24 02:09] VITALS: BP 168/119
[2019-04-24 02:53] VITALS: BP 156/98
[2019-04-24 07:53] VITALS: BP 172/140
[2019-04-24] MEDS: INSULIN LISPRO 100 UNITS/ML, PEN SQ-INSULIN SCH ×4 (08:16→20:42)
[2019-04-24] MEDS: ISOSORBIDE MONONITRATE ER 30 MG TABLET PO SCH (08:20)
[2019-04-24] MEDS: METOPROLOL SUCCINATE 100 MG TAB.ER.24H PO SCH (08:20)
[2019-04-24] MEDS: MAGNESIUM OXIDE 400 MG TABLET PO SCH (08:21)
[2019-04-24] MEDS: BACLOFEN 10 MG TABLET PO SCH ×2 (08:21→20:41)
[2019-04-24] MEDS: LOSARTAN 100 MG TAB PO SCH (08:22)
[2019-04-24] MEDS: DILTIAZEM 120 MG CAP.ER.24H PO SCH (08:22)
[2019-04-24] MEDS: FUROSEMIDE 80 MG TABLET PO SCH (08:22)
[2019-04-24 12:19] VITALS: BP 138/87
[2019-04-24] MEDS: ATORVASTATIN 40 MG TABLET PO SCH (20:41)
[2019-04-24] MEDS: RIVAROXABAN 20 MG TABLET PO SCH (20:41)
[2019-04-25 01:15] VITALS: BP 208/104
[2019-04-25] MEDS: hydrALAzine 20 MG/ML, 1ML IV PRN (01:31)
[2019-04-25] MEDS: ACETAMINOPHEN 325 MG TABLET PO PRN ×3 (03:15→17:46)
[2019-04-25] MEDS: INSULIN LISPRO 100 UNITS/ML, PEN SQ-INSULIN SCH ×4 (07:00→21:13)
[2019-04-25] MEDS: METOPROLOL SUCCINATE 100 MG TAB.ER.24H PO SCH (08:43)
[2019-04-25] MEDS: LOSARTAN 100 MG TAB PO SCH (08:43)
[2019-04-25] MEDS: MAGNESIUM OXIDE 400 MG TABLET PO SCH (08:43)
[2019-04-25] MEDS: ISOSORBIDE MONONITRATE ER 30 MG TABLET PO SCH (08:43)
[2019-04-25] MEDS: DILTIAZEM 120 MG CAP.ER.24H PO SCH (08:43)
[2019-04-25] MEDS: FUROSEMIDE 80 MG TABLET PO SCH (08:43)
[2019-04-25] MEDS: BACLOFEN 10 MG TABLET PO SCH ×2 (08:44→21:04)
[2019-04-25 09:00] VITALS: BP 131/91
[2019-04-25 11:16] LABS: MEAN CORPUSCULAR HEMOGLOBIN 27.1 pg (27.5-34.5); MEAN CORPUSCULAR HGB CONC 31.2 g/dL (33.2-36.2); MEAN CORPUSCULAR VOLUME 86.9 fL (81-97); MEAN PLATELET VOLUME 9.9 fL (7.4-10.4); PLATELET COUNT 161 x10^3/uL (130-400); RED BLOOD COUNT 5.25 x10^6/uL (4.38-5.82); RED CELL DISTRIBUTION WIDTH 16.6 % (9.4-14.8)
[2019-04-25 11:26] LABS: ALANINE AMINOTRANSFERASE 20 U/L (12-78); ALBUMIN 2.7 g/dL (3.4-5.0); ANION GAP 7 mmol/L (5-15); CALCIUM 8.7 mg/dL (8.5-10.1); CHLORIDE 101 mmol/L (98-107); CREATININE 1.78 mg/dL (0.7-1.3)
[2019-04-25 11:29] LABS: ALKALINE PHOSPHATASE 124 U/L (45-117); TOTAL PROTEIN 6.6 g/dL (6.4-8.2)
[2019-04-25 12:08] LABS: BASOPHILS # (AUTO) 0.01 x10^3/uL (0-0.1); BASOPHILS % (AUTO) 0 % (0-1); EOSINOPHILS # (AUTO) 0.01 x10^3/uL (0-0.4); EOSINOPHILS % (AUTO) 0 % (1-7); LYMPHOCYTES # (AUTO) 0.25 x10^3/uL (1-3.4); LYMPHOCYTES % (AUTO) 2 % (22-44); MD SCAN; MONOCYTES # (AUTO) 0.48 x10^3/uL (0.2-0.8); MONOCYTES % (AUTO) 5 % (2-9); NEUTROPHILS # (AUTO) 9.68 x10^3/uL (1.8-6.8); NEUTROPHILS % (AUTO) 93 % (42-75)
[2019-04-25 12:41] LABS: MICROSCOPIC AUTO
[2019-04-25 12:43] LABS: CULTURE INDICATED? YES
[2019-04-25] MEDS: LEVOFLOXACIN/PMX 750MG/150ML 150 ML IV SCH (13:25)
[2019-04-25 13:53] VITALS: BP 127/80
[2019-04-25] MEDS: RIVAROXABAN 20 MG TABLET PO SCH (17:46)
[2019-04-25 18:45] VITALS: BP 96/54
[2019-04-25] MEDS: ATORVASTATIN 40 MG TABLET PO SCH (21:04)
[2019-04-26 03:25] VITALS: BP 155/95
[2019-04-26] MEDS: ACETAMINOPHEN 325 MG TABLET PO PRN (06:06)
[2019-04-26 06:52] VITALS: BP 133/87
[2019-04-26] MEDS: INSULIN LISPRO 100 UNITS/ML, PEN SQ-INSULIN SCH ×4 (08:20→22:18)
[2019-04-26] MEDS: ISOSORBIDE MONONITRATE ER 30 MG TABLET PO SCH (08:21)
[2019-04-26] MEDS: METOPROLOL SUCCINATE 100 MG TAB.ER.24H PO SCH (08:21)
[2019-04-26] MEDS: LOSARTAN 100 MG TAB PO SCH (08:21)
[2019-04-26] MEDS: MAGNESIUM OXIDE 400 MG TABLET PO SCH (08:22)
[2019-04-26] MEDS: DILTIAZEM 120 MG CAP.ER.24H PO SCH (08:22)
[2019-04-26] MEDS: BACLOFEN 10 MG TABLET PO SCH ×2 (08:22→22:17)
[2019-04-26] MEDS ORDERED: POTASSIUM CHLORIDE 20 MEQ TAB.ER.PRT ONE (08:27)
[2019-04-26] MEDS ORDERED: POTASSIUM CHLORIDE 20 MEQ TAB.ER.PRT PO ONE (08:30)
[2019-04-26 08:43] LABS: ANION GAP 7 mmol/L (5-15); CALCIUM 8.8 mg/dL (8.5-10.1); CHLORIDE 98 mmol/L (98-107); CREATININE 1.69 mg/dL (0.7-1.3)
[2019-04-26 09:05] LABS: BASOPHILS % (AUTO) 0 % (0-1); EOSINOPHILS # (AUTO) 0.03 x10^3/uL (0-0.4); EOSINOPHILS % (AUTO) 0 % (1-7); LYMPHOCYTES # (AUTO) 0.34 x10^3/uL (1-3.4); LYMPHOCYTES % (AUTO) 4 % (22-44); MD SCAN; MEAN CORPUSCULAR HEMOGLOBIN 27.5 pg (27.5-34.5); MEAN CORPUSCULAR HGB CONC 31.6 g/dL (33.2-36.2); MEAN CORPUSCULAR VOLUME 86.9 fL (81-97); MEAN PLATELET VOLUME 9.6 fL (7.4-10.4); MONOCYTES # (AUTO) 0.66 x10^3/uL (0.2-0.8); MONOCYTES % (AUTO) 8 % (2-9); NEUTROPHILS # (AUTO) 7.66 x10^3/uL (1.8-6.8); NEUTROPHILS % (AUTO) 88 % (42-75); PLATELET COUNT 175 x10^3/uL (130-400); RED BLOOD COUNT 5.29 x10^6/uL (4.38-5.82); RED CELL DISTRIBUTION WIDTH 16.4 % (9.4-14.8)
[2019-04-26] MEDS: LEVOFLOXACIN/PMX 750MG/150ML 150 ML IV SCH (13:00)
[2019-04-26 14:27] VITALS: BP 128/78
[2019-04-26] MEDS: RIVAROXABAN 20 MG TABLET PO SCH (17:10)
[2019-04-26] MEDS: FUROSEMIDE 40 MG/4 ML IV SCH (17:11)
[2019-04-26 19:51] VITALS: BP 107/73
[2019-04-26] MEDS: ATORVASTATIN 40 MG TABLET PO SCH (22:17)
[2019-04-27 01:27] VITALS: BP 133/83
[2019-04-27 05:07] LABS: BASOPHILS # (AUTO) 0.02 x10^3/uL (0-0.1); BASOPHILS % (AUTO) 0 % (0-1); EOSINOPHILS # (AUTO) 0.17 x10^3/uL (0-0.4); EOSINOPHILS % (AUTO) 2 % (1-7); LYMPHOCYTES # (AUTO) 0.63 x10^3/uL (1-3.4); LYMPHOCYTES % (AUTO) 9 % (22-44); MD NO; MEAN CORPUSCULAR HEMOGLOBIN 27.5 pg (27.5-34.5); MEAN CORPUSCULAR HGB CONC 31.3 g/dL (33.2-36.2); MEAN PLATELET VOLUME 10.4 fL (7.4-10.4); MONOCYTES # (AUTO) 1.02 x10^3/uL (0.2-0.8); MONOCYTES % (AUTO) 14 % (2-9); NEUTROPHILS # (AUTO) 5.46 x10^3/uL (1.8-6.8); NEUTROPHILS % (AUTO) 75 % (42-75); PLATELET COUNT 160 x10^3/uL (130-400); RED BLOOD COUNT 4.91 x10^6/uL (4.38-5.82); RED CELL DISTRIBUTION WIDTH 16.3 % (9.4-14.8)
[2019-04-27 05:13] LABS: ANION GAP 6 mmol/L (5-15); CALCIUM 8.9 mg/dL (8.5-10.1); CHLORIDE 99 mmol/L (98-107)
[2019-04-27 05:14] LABS: CREATININE 1.52 mg/dL (0.7-1.3)
[2019-04-27 06:28] VITALS: BP 147/99
[2019-04-27] MEDS: FUROSEMIDE 40 MG/4 ML IV SCH ×2 (07:30→08:47)
[2019-04-27] MEDS: ISOSORBIDE MONONITRATE ER 30 MG TABLET PO SCH (08:47)
[2019-04-27] MEDS: INSULIN LISPRO 100 UNITS/ML, PEN SQ-INSULIN SCH ×2 (08:47→11:00)
[2019-04-27] MEDS: LOSARTAN 100 MG TAB PO SCH (08:47)
[2019-04-27] MEDS: DILTIAZEM 120 MG CAP.ER.24H PO SCH (08:47)
[2019-04-27] MEDS: BACLOFEN 10 MG TABLET PO SCH (08:48)
[2019-04-27] MEDS: METOPROLOL SUCCINATE 100 MG TAB.ER.24H PO SCH (08:48)
[2019-04-27] MEDS: MAGNESIUM OXIDE 400 MG TABLET PO SCH (08:48)
[2019-04-27] MEDS ORDERED: POTASSIUM CHLORIDE 20 MEQ TAB.ER.PRT PO ONE (11:30)
[2019-04-27] MEDS ORDERED: LEVO750T26 PO (13:07)
[2019-04-27] MEDS ORDERED: POTA20TA6 PO (13:07)
[2019-04-27] MEDS ORDERED: AMLO10TA4 PO (13:08)
[2019-04-28] MEDS ORDERED: PANTOPROZOLE 40MG TABLET PO SCH (06:00)
[2019-04-28] MEDS ORDERED: FUROSEMIDE 40 MG/4 ML IV SCH ×2 (07:30→15:30)
[2019-04-28] MEDS ORDERED: POTASSIUM CHLORIDE 20 MEQ TAB.ER.PRT PO SCH (08:00)
== END 2019-04-27 13:58 | disposition left against medical advice (07) | DRG 177 ==
LOC: ED 10:55 → EDIP 11:31 → 5SO 14:59
PROVIDERS: ADMIT Internal Medicine Infectious Disease; ATTEND Hospitalist
DX: J15.6 Pneumonia due to other Gram-negative bacteria (principal); I50.43 Acute on chronic combined systolic (congestive) and diastolic (congestive) heart failure; J96.21 Acute and chronic respiratory failure with hypoxia; I13.0 Hypertensive heart and chronic kidney disease with heart failure and stage 1 through stage 4 chronic kidney disease, or unspecified chronic kidney disease; I48.20 Chronic atrial fibrillation, unspecified; J44.0 Chronic obstructive pulmonary disease with (acute) lower respiratory infection; N39.0 Urinary tract infection, site not specified; B96.89 Other specified bacterial agents as the cause of diseases classified elsewhere; E11.22 Type 2 diabetes mellitus with diabetic chronic kidney disease; E11.65 Type 2 diabetes mellitus with hyperglycemia; E83.42 Hypomagnesemia; F41.0 Panic disorder [episodic paroxysmal anxiety]; N18.3 Chronic kidney disease, stage 3 (moderate); Y95 Nosocomial condition; Z59.0 Homelessness; Z79.01 Long term (current) use of anticoagulants; Z79.84 Long term (current) use of oral hypoglycemic drugs; Z79.899 Other long term (current) drug therapy; Z81.1 Family history of alcohol abuse and dependence; Z82.49 Family history of ischemic heart disease and other diseases of the circulatory system; Z83.3 Family history of diabetes mellitus; Z87.891 Personal history of nicotine dependence; Z91.19 Patient's noncompliance with other medical treatment and regimen; Z95.0 Presence of cardiac pacemaker
CPT/HCPCS: 36415; 71045; 74018; 80048; 80053; 81001; 82962; 83036; 83605; 83735; 83880; 84100; 84145; 84436; 84443; 84484; 85025; 85610; 85730; 87040; 87077; 87086; 87186; 93005; G0378; J1940; J1956; J0360; J1815